=== PATIENT | female | born 1990 | race Caucasian/White ===

== ENCOUNTER 2018-02-06 12:06 | Emergency (ER) | payer BC ==
[~2018-02-06] VITALS: Ht 157.5 cm; Wt 57.5 kg
[~2018-02-06 12:06] MED LIST: ALLEGRA30 MG PO; AUGMENTIN875 MG PO; CLARITHROMYCIN500 MG PO; CLARITIN,ALAVAR10 MG PO; DIFLUCAN150 MG PO; EFFEXOR37.5 MG PO; ENDOCET 5-3251 EACH PO; FLUTICASONE PRO16 GM BOTH NARES; LO LOESTRIN FE1 EACH PO; LOESTRIN 241 TABLET PO; PREDNISONE20 MG PO; PROAIR HFA8.5 GM IH; TRAMADOL HCL50 MG PO; ULTRAM50 MG PO; ZYRTEC-D1 TABLE1 PO; [UNRECOGNIZED DRUG - REMARK]; [UNRECOGNIZED DRUG - REMARK]; otc allergy med
[2018-02-06 13:41] LABS: HEMATOCRIT 40.3 % (36.0-46.0); HEMOGLOBIN 13.7 G/DL (11.9-15.5); MCH 29.1 PG (29.0-34.0); MCV 85.6 FL (83-99); PLATELET COUNT 325 K/uL (156-360); RBC DIS.WIDTH-CV 12.5 % (11.8-14.6); RBC DIS.WIDTH-SD 39.5 % (39-53); RED BLOOD COUNT 4.71 M/uL (3.80-5.20); WHITE BLOOD COUNT 10.8 K/uL (4.1-10.2)
[2018-02-06 13:59] LABS: APPEARANCE CLOUDY ((CLEAR)); BILIRUBIN NEGATIVE; BLOOD NEGATIVE; COLOR YELLOW ((YELLOW)); GLUCOSE (STRIP) NEGATIVE; KETONES NEGATIVE; LEUKOCYTES NEGATIVE; NITRITE NEGATIVE; PROTEIN (STRIP) 30; SPECIFIC GRAVITY 1.015 (1.000-1.030); UROBILINOGEN 0.2 MG/DL (0.2-1.0)
[2018-02-06 14:08] LABS: AMPHETAMINE NEGATIVE (500 ng/mL); BARBITURATES NEGATIVE (200 ng/mL); BENZODIAZEPINES NEGATIVE (150 ng/mL); BUPRENORPHINE NEGATIVE (10 ng/mL); COCAINE NEGATIVE (150 ng/mL); METHADONE NEGATIVE (200 ng/mL); METHAMPHETAMINE NEGATIVE (500 ng/mL); OPIATES (MORPHINE) NEGATIVE (100 ng/mL); OXYCODONE PRESUMPTIVE POSITIVE (100 ng/mL); PHENCYCLIDINE NEGATIVE (25 ng/mL); PROPOXYPHENE NEGATIVE (300 ng/mL); THC CANNABINOIDS NEGATIVE (50 ng/mL); TRICYCLIC ANTIDEPRESSANTS NEGATIVE (300 ng/mL)
[2018-02-06 14:09] LABS: CHLORIDE 102 MEQ/L (99-109); SODIUM 137 MEQ/L (136-147)
[2018-02-06 14:13] LABS: AMORPHOUS URATES CRYSTALS 2+; BACTERIA 1+ /HPF; EPITHELIAL CELLS 1+ /HPF; MUCUS NONE SEEN /LPF; RED BLOOD CELLS NONE SEEN /HPF (0-5); WHITE BLOOD CELLS RARE /HPF (0-5)
[2018-02-06 14:14] LABS: QUANTITATIVE HCG < 4.0 MIU/ML
[2018-02-06 14:24] LABS: CREATININE 0.9 MG/DL (0.6-1.3); GFR ESTIMATE (CALCULATED) > 59 mL/min/; GLUCOSE 101 mg/dL (70-99); SERUM ETHYL ALCOHOL < 10 mg/dL; UREA NITROGEN (BUN) 11 mg/dL (9-23)
[2018-02-06 15:08] VITALS: BP 144/88
== END 2018-02-06 15:15 | disposition home or self-care (01) ==
LOC: EME 12:06
PROVIDERS: Family Medicine
DX: S01.112A Laceration without foreign body of left eyelid and periocular area, initial encounter (principal); W01.198A Fall on same level from slipping, tripping and stumbling with subsequent striking against other object, initial encounter; R56.9 Unspecified convulsions; I10 Essential (primary) hypertension; E16.2 Hypoglycemia, unspecified; Z88.0 Allergy status to penicillin
CPT/HCPCS: 70450; 71046; 80048; 81003; 82948; 84702; 85027; 93005; 99281; 99285; G0480; J0780; J1200; J7040